=== PATIENT | female | born 1965 | race Caucasian/White ===

== ENCOUNTER 2017-08-16 10:43 | Emergency (ER) | payer BC, OTHER ==
[~2017-08-16] VITALS: Ht 170.2 cm; Wt 55.3 kg
[2017-08-16 10:49] VITALS: TEMP 36.5; Ht 170.2 cm; Wt 55.3 kg
[2017-08-16] MEDS ORDERED: LUVOX PO (10:59)
[2017-08-16] MEDS ORDERED: RTL20 PO (10:59)
[2017-08-16] MEDS ORDERED: BUPRTAB PO (10:59)
[2017-08-16] MEDS ORDERED: KFL/250 PO (10:59)
[2017-08-16] MEDS ORDERED: SODIUM CHLORIDE 0.9% 1000ML 1,000 ML IV STA (11:06)
[2017-08-16 11:28] LABS: URINE APPEARANCE CLOUDY (CLEAR); URINE BILIRUBIN NEG (NEG); URINE COLOR YELLOW; URINE EPITHELIAL CELL AUTO >30 /lpf (0-5); URINE NITRITE NEG (NEG); URINE SPECIFIC GRAVITY 1.024 (1.000-1.030); UROBILINOGEN NEG (NEG); ZZUR CULT IF INDIC CLEAN CATCH NO
[2017-08-16 11:38] LABS: BASO % 0.5 %; BASO ABS # 0.03 K/uL (0-0.2); COMPLETE YES; HEMATOCRIT 48.6 % (37-47); IG% 0.2 %; LYMPH ABS # 1.57 K/uL (1.2-3.4); MEAN CELL VOLUME 95.9 fL (80-100); MEAN CORPUSCULAR HEMOGLOBIN 32.3 pg (25-34); MEAN CORPUSCULAR HGB CONC 33.7 g/dl (32-36); MEAN PLATELET VOLUME 9.6 fL (7.4-10.4); MONO % 15.3 %; PLATELET COUNT 203 K/uL (130-400); RED BLOOD COUNT 5.07 M/uL (4.2-5.4); WHITE BLOOD COUNT 6.03 K/uL (4.8-10.8)
[2017-08-16 11:38] LABS: MANUAL MICROSCOPIC REQUIRED? NO; REVIEW REQ? NO
[2017-08-16 11:52] LABS: BUN/CREATININE RATIO 24.1 (10-20); CALCIUM 8.6 mg/dl (8.5-10.1); CREATININE 0.82 mg/dl (0.60-1.20); POTASSIUM 3.8 mmol/L (3.5-5.1)
[2017-08-16 11:54] LABS: ALB/GLOB RATIO 0.9 (0.9-2)
--- NOTE | 2017-08-16 12:18 | EMERGENCY ROOM VISIT NOTE ---
History First contact with patient: 10:57 Chief Complaint: LEG PAIN,LEG INJURY Stated Complaint: CELLULITIS ON L R LEG History of Present Illness The patient is a 52 year old female who presents to the Emergency Room with complaints of generally feeling ill with fatigue, joint aches and musculoskeletal pain, headaches. She states that she started feeling poorly 3 days ago, she saw her PCP 2 days ago and was diagnosed with cellulitis of her right lower leg. She was placed on Keflex for this, and states that her leg has greatly improved, but she is otherwise still feeling run down. She reports some chills and low-grade fevers of 99 at home. She does admit that she has not been eating and drinking as well as normal, and thinks she might be a little dehydrated. She denies any neck pain, vision changes, cough, sore throat , ear pain, chest pain, shortness of breath, palpitations, dizziness or syncope , vomiting or diarrhea, abdominal pain, urinary symptoms, or rash. She denies any concern for tick bites or tick exposure. She denies any known sick contacts. She did not get a flu shot this year. Review of Systems A complete 10 point review of systems was reviewed with the patient with pertinent positives and negatives as per history of present illness. All else were negative. Past Medical/Surgical History Anxiety, depression Social History Smoking Status: Never Smoker Alcohol Use: none Drug Use: none Current/Historical Medications Scheduled Bupropion Hcl (Wellbutrin Xl), 150 MG PO BID Cephalexin Monohydrate (Keflex), 250 MG PO QID Methylphenidate (Ritalin), 20 MG PO TID [Luvox], 1 TAB PO BID Allergies NKA Physical Exam Vital Signs Date Time Temp Pulse Resp B/P (MAP) Pulse Ox O2 Delivery O2 Flow Rate FiO2 08/16/17 13:44 62 100/65 99 Room Air 08/16/17 10:49 36.5 72 20 151/97 98 Room Air Physical Exam CONSTITUTIONAL: No acute distress, nontoxic appearing. Moderately dehydrated, but otherwise well appearing and well nourished. Alert and oriented X 4. HEENT: Normocephalic, atraumatic. Pupils equal, round and reactive to light, EOMI. TMs normal. Pharynx normal. Dry mucous membranes. NECK: Supple, full active range of motion without discomfort. RESPIRATORY: Clear to auscultation bilaterally with no wheezing, crackles, rhonchi or stridor. Equal expansion bilaterally. CARDIOVASCULAR: Regular rate and rhythm with no murmurs, rubs or gallops. Normal peripheral perfusion. No edema. GASTROINTESTINAL: Soft, nontender, nondistended. Bowel sounds present in all quadrants. MUSCULOSKELETAL: Full range of motion of all joints without discomfort. There is a small area of erythema surrounding an open sore on the right lateral calf, no drainage noted, mildly tender to palpation. The right calf is generally soft , nontender, not erythematous, and not hot to touch. INTEGUMENTARY: No rash or other significant dermatologic conditions noted. Dry skin with decreased skin turgor. NEUROLOGIC: Cranial nerves II-XII grossly intact. No focal neurologic deficits noted. Medical Decision & Procedures Laboratory Results 08/16/17 11:22 Red Blood Count 5.07, Mean Corpuscular Volume 95.9, Mean Corpuscular Hemoglobin 32.3, Mean Corpuscular Hemoglobin Concent 33.7, Mean Platelet Volume 9.6, Neutrophils (%) (Auto) 56.0, Lymphocytes (%) (Auto) 26.0, Monocytes (%) (Auto) 15.3, Eosinophils (%) (Auto) 2.0, Basophils (%) (Auto) 0.5, Neutrophils # (Auto ) 3.38, Lymphocytes # (Auto) 1.57, Monocytes # (Auto) 0.92, Eosinophils # (Auto ) 0.12, Basophils # (Auto) 0.03 08/16/17 11:22 Test 08/16/17 11:15 08/16/17 11:22 Urine Color YELLOW Urine Appearance CLOUDY (CLEAR) Urine pH 6.0 (4.5-7.5) Urine Specific [place] 1.024 (1.000-1.030) Urine Protein NEG (NEG) Urine Glucose (UA) NEG (NEG) Urine Ketones NEG (NEG) Urine Occult Blood NEG (NEG) Urine Nitrite NEG (NEG) Urine Bilirubin NEG (NEG) Urine Urobilinogen NEG (NEG) Urine Leukocyte Esterase TRACE (NEG) Urine WBC (Auto) 1-5 /hpf (0-5) Urine RBC (Auto) 0-4 /hpf (0-4) Urine Hyaline Casts (Auto) 1-5 /lpf (0-5) Urine Epithelial Cells (Auto) >30 /lpf (0-5) Urine Bacteria (Auto) NEG (NEG) Influenza Type A (RT-PCR) Neg for Influ A (NEG) Influenza Type A Antigen Neg for Influ A (NEG) Influenza Type B Antigen Neg for Influ B (NEG) Influenza Type B (RT-PCR) Neg for Influ B (NEG) White Blood Count 6.03 K/uL (4.8-10.8) Red Blood Count 5.07 M/uL (4.2-5.4) Hemoglobin 16.4 g/dL (12.0-16.0) Hematocrit 48.6 % (37-47) Mean Corpuscular Volume 95.9 fL (80-100) Mean Corpuscular Hemoglobin 32.3 pg (25-34) Mean Corpuscular Hemoglobin Concent 33.7 g/dl (32-36) Platelet Count 203 K/uL (130-400) Mean Platelet Volume 9.6 fL (7.4-10.4) Neutrophils (%) (Auto) 56.0 % Lymphocytes (%) (Auto) 26.0 % Monocytes (%) (Auto) 15.3 % Eosinophils (%) (Auto) 2.0 % Basophils (%) (Auto) 0.5 % Neutrophils # (Auto) 3.38 K/uL (1.4-6.5) Lymphocytes # (Auto) 1.57 K/uL (1.2-3.4) Monocytes # (Auto) 0.92 K/uL (0.11-0.59) Eosinophils # (Auto) 0.12 K/uL (0-0.5) Basophils # (Auto) 0.03 K/uL (0-0.2) RDW Standard Deviation 42.4 fL (36.4-46.3) RDW Coefficient of Variation 12.1 % (11.5-14.5) Immature Granulocyte % (Auto) 0.2 % Immature Granulocyte # (Auto) 0.01 K/uL (0.00-0.02) Anion Gap 6.0 mmol/L (3-11) Est Creatinine Clear Calc Drug Dose 70.9 ml/min Estimated GFR () 96.0 Estimated GFR (Non- 82.9 BUN/Creatinine Ratio 24.1 (10-20) Lactic Acid Level 1.1 mmol/L (0.4-2.0) Calcium Level 8.6 mg/dl (8.5-10.1) Total Bilirubin 0.2 mg/dl (0.2-1) Aspartate Amino Transf (AST/SGOT) 29 U/L (15-37) Alanine Aminotransferase (ALT/SGPT) 37 U/L (12-78) Alkaline Phosphatase 100 U/L (45-117) Total Protein 7.8 gm/dl (6.4-8.2) Albumin 3.7 gm/dl (3.4-5.0) Globulin 4.1 gm/dl (2.5-4.0) Albumin/Globulin Ratio 0.9 (0.9-2) Medications Administered Medications (Trade) Dose Ordered Sig/Ernestina Route Start Time Stop Time Status Last Admin Dose Admin Sodium Chloride 1,000 ml @ 999 mls/hr Q1H1M STAT IV 08/16/17 11:06 08/16/17 12:06 DC 08/16/17 11:06 999 MLS/HR Medical Decision CC: Patient presenting with complaint of fatigue and feeling ill Interpretation of Labs: No leukocytosis, no anemia , mild hypoglycemia, no other significant electrolyte abnormalities, normal renal function. Lactic acid within normal limits. Negative influenza. UA negative for infection. Differential Diagnosis: Includes, but not limited to viral illness, cellulitis, UTI, dehydration, influenza, electrolyte abnormality, among others. Medication Reconciliation: I attest that I have personally reviewed the patient' s current medication list. Vital signs review: I reviewed the patient's vital signs and interpret them as follows: T: Afebrile; BP: Hypertensive; HR: Within normal limits; RR: Within normal limits; Pulse Ox: Within normal limits on room air. Blood pressure screening: The patient was found to have an elevated blood pressure, this resolved after IV fluid hydration, and was felt to be situational. Summary: Patient was evaluated at bedside, history and physical exam performed. Patient is alert and oriented, in no acute distress, resting calmly in the stretcher. Patient does appear moderately dehydrated with dry skin and mucous membranes. Her right calf does not look overtly cellulitic, and she does report that this is greatly improved since starting on antibiotics. Orders were placed at bedside for labs, UA, IV fluids for hydration. Patient discussed with Dr. Saleh, who agrees with my assessment and plan. Labs reviewed as above, noted the patient has mild hypoglycemia and does appear to be dehydrated. Patient was given some even drink, recheck [id number] blood glucose is normalized. Patient reassessed multiple times throughout ED stay, she reports that she feels much better after the fluids and having something to eat. I discussed all results with the patient and plan for discharge home, encouraging close follow-up with her PCP, and I also instructed her to stay on the Keflex. I discussed the importance of eating regularly and drinking plenty of fluids to avoid dehydration and hypoglycemia, as these most likely are the cause for her symptoms of fatigue. She was also given strict return precautions should any of her symptoms worsen, she verbalized understanding. The patient was discharged home in stable condition and ambulatory. Medication Reconcilliation Current Medication List: was personally reviewed by me Blood Pressure Screening Patient's blood pressure: Elevated blood pressure Blood pressure disposition: Elevated BP felt to be situational Impression Primary Impression: Body aches Additional Impression: Dehydration Departure Information Dispostion Home / Self-Care Condition GOOD Referrals Chai Licona D.OArtie (PCP) Patient Instructions ED Dehydration, ED Muscle Aching, ED Weakness [facility], [facility] Additional Instructions You have been treated in the Emergency Department today for fatigue and dehydration. Laboratory results have ruled out any emergent reasons for further evaluation or admission. You may take Tylenol 1000 mg every 8 hours as needed for fevers or body aches. Do not take more than 3000 mg in 24 hours. You may also take ibuprofen 600 mg every 6-8 hours as needed for fevers or body aches. Do not take more than 2400 mg in 24 hours It is ESSENTIAL that you maintain adequate hydration with oral fluids! Some suggestions include: - Water is the IDEAL replacement for lost fluids. You should initially sip at the water to help facilitate increased intestinal absorption rate and to decrease the possibility of nausea/vomiting. - Carbohydrate/Electrolyte-Containing Drinks (i.e. Gatorade, Powerade, Pedialyte). All of these are good choices, but it is important to remember that all of these drinks contain a high concentration of sugar. - Popsicles, ice chips, and fruit juices are all other options. - My FAVORITE dehydration remedy is to mix a 1:1 solution of bottled Gatorade with bottled water. This dilution allows for a palatable flavor with added benefit of a reduction in the amount of sugar consumption. Your blood sugar was noted to be slightly low today. It is important to eat regular meals throughout the day to help keep your blood sugar stable. Follow-up with your primary care provider in the next few days if your symptoms have not resolved. Continue to take the Keflex antibiotic as prescribed for the full course. Return to the Emergency Department for any worsening symptoms, including severe pain, chest pain or trouble breathing, dizziness or passing out, increased weakness or fatigue, decreased urine output, fevers greater than 101.5, worsening infection of your leg including increased pain, redness, swelling, or any other concerns. Work Instructions Return To Work: 1 day Problem [employer]
[2017-08-16 13:53] LABS: INFLUENZA A PCR Neg for Influ A (NEG); INFLUENZA B PCR Neg for Influ B (NEG)
[2017-08-16 14:29] VITALS: BP 103/67; PULSE 58; O2SAT 98
== END 2017-08-16 14:31 | disposition home or self-care (01) ==
LOC: C.EDB 10:46 → C.EDD 14:31
DX: R52 Pain, unspecified (principal); E86.0 Dehydration; L03.115 Cellulitis of right lower limb; F32.9 Major depressive disorder, single episode, unspecified; F41.9 Anxiety disorder, unspecified; S81.801A Unspecified open wound, right lower leg, initial encounter; X58.XXXA Exposure to other specified factors, initial encounter

== ENCOUNTER → 2017-11-20 | Outpatient (CLI) | payer BC ==
[~2017-11-20] MED LIST: BUPRTAB PO; KFL/250 PO; LUVOX PO; RTL20 PO
== END | disposition home or self-care (01) ==
LOC: C.LAB1850 17:12
PROVIDERS: ATTEND Family Medicine
DX: R53.83 Other fatigue (principal); E55.9 Vitamin D deficiency, unspecified